=== PATIENT | male | born 1995 | race Caucasian/White ===

== ENCOUNTER 2017-04-13 00:04 | Emergency (ER) | END 2017-04-13 01:31 | disposition home or self-care (01) | DX: R10.13 Epigastric pain (principal) ==

== ENCOUNTER 2017-12-01 14:52 | Emergency (ER) | END 2017-12-01 18:05 | disposition left against medical advice (07) ==

== ENCOUNTER 2017-12-03 02:27 | Emergency (ER) | END 2017-12-03 03:14 | disposition home or self-care (01) ==

== ENCOUNTER 2018-06-12 16:18 | Emergency (ER) | END 2018-06-12 18:18 | disposition home or self-care (01) ==

== ENCOUNTER → 2019-04-23 | Emergency (ER) | payer SELFPAY ==
[~2019-04-23] VITALS: Ht 172.7 cm; Wt 79.0 kg
[~2019-04-23] MED LIST: ACET1TAB40 PO; CEPH-443 PO; ERYT1OIN6 LEFT EYE; IBUP-1542 PO; OMEP20CA16 PO; RANI150T35 PO; SUCR1TAB56 PO
[2019-04-23 07:53] VITALS: BP 111/72; PULSE 79; RESP 17; Ht 172.7 cm; Wt 79.0 kg
--- NOTE | 2019-04-23 10:04 | ERD ---
ER Documentation Chief Complaint Chief Complaint PROBLEM SWALLOWING, PT STATES FOOD FEELS "STUCK" HPI This is a 23-year-old male presents to the ED complaining of intermittent sensation of food feeling stuck in his mid substernal region for the past several months. He was seen at [facility] for this 1 week ago, diagnosed with gastric reflux disease and discharged home with omeprazole. Patient states his symptoms have since been improving but came here today for further evaluation. He states he currently is symptomatic, he denies any current abdominal pain, chest pain, shortness of breath, burning sensation, difficulty breathing, hematemesis, choking or any other symptoms. He he states he usually gets this foreign body sensation after eating. He states sensation starts at his mid substernal region and radiates up towards his throat that is associated with hoarseness. Again, patient is asymptomatic here. ROS All systems reviewed and are negative except as per history of present illness. Medications Home Meds Active Scripts Erythromycin Base (Erythromycin) 1 Gm Oint...g., 1 APPLIC LEFT EYE QID for 7 Days Prov:FREDDIE ROSE MD 06/12/18 Acetaminophen with Codeine (Acetaminophen-Cod #3 Tablet) 1 Each Tablet, 1 TAB PO Q6H PRN for PAIN, #7 TAB Prov:FREDDIE ROSE MD 06/12/18 Ibuprofen* (Motrin*) 600 Mg Tab, 600 MG PO Q6H PRN for PAIN AND OR ELEVATED TEMP, #30 TAB Prov:MAO VARGAS NP 12/03/17 Cephalexin* (Keflex*) 500 Mg Capsule, 500 MG PO QID for 10 Days, CAP Prov:MAO VARGAS NP 12/03/17 Sucralfate* (Carafate*) 1 Gm Tab, 1 GM PO QID for 7 Days, TAB Prov:RADU KIDD 04/13/17 Omeprazole* (Omeprazole*) 20 Mg Capsule.dr, 20 MG PO BID, #20 Prov:RADU KIDD 04/13/17 Ranitidine Hcl* (Zantac*) 150 Mg Tablet, 150 MG PO BID PRN for gerd, #30 TAB Prov:RADU KIDD 05/11/15 Reported Medications [None] No Conflict Check 5/22/11 Allergies Allergies: Coded Allergies: No Known Drug Allergy (Verified Allergy, Mild, 01/27/11) PMhx/Soc Medical and Surgical Hx: pt denies Surgical Hx History of Surgery: No Anesthesia Reaction: No Hx Neurological Disorder: No Hx Respiratory Disorders: No Hx Cardiac Disorders: No Hx Psychiatric Problems: No Hx Miscellaneous Medical Probl: Yes (gerd) Hx Alcohol Use: Yes Hx Substance Use: No Hx Tobacco Use: No Smoking Status: Never smoker Physical Exam Vitals Vital Signs Date Temp Pulse Resp B/P (MAP) Pulse Ox O2 O2 Flow FiO2 Time Delivery Rate 04/23/19 96.8 79 17 111/72 100 07:53 (85) Physical Exam Const: No acute distress Head: Atraumatic Eyes: Normal Conjunctiva ENT: Normal External Ears, Nose and Mouth. No FB visualized in the posterior oropharynx. Neck: Full range of motion. No meningismus. Resp: Clear to auscultation bilaterally Cardio: Regular rate and rhythm, no murmurs Abd: Soft, non tender, non distended. Normal bowel sounds Skin: No petechiae or rashes Back: No midline or flank tenderness Ext: No cyanosis, or edema Neur: Awake and alert Psych: Normal Mood and Affect Procedures/MDM MEDICAL DECISION MAKIN-year-old male recently diagnosed with GERD presents with sensation of food stuck in his throat intermittently over the past several months. Patient is asymptomatic on my evaluation and as a benign abdomen on physical exam. No e/o FB. He is nontoxic appearing, no hypoxia or respiratory distress. Discussed at length with patient that symptoms are common to those w/ reflux disease, patient was reassured. Patient would likely most benefit from outpatient endoscopy for his continued symptoms. He is already taking omeprazole, I encouraged him to continue w/ this, change his diet and follow up w/ GI at [facility] for outpati ent endoscopy. He is otherwise hemodynamically stable, no e/o upper or lower GI bleeding. I offered labs and treatment here but he deferred. Strict return precautions were discussed. PRESCRIPTIONS: None, patient has omeprazole at home. SPECIALIST FOLLOW UP RECOMMENDED: GI specialist at [facility]. Departure Diagnosis: Primary Impression: GERD (gastroesophageal reflux disease) Esophagitis presence: esophagitis presence not specified Qualified Codes: K21.9 - Gastro-esophageal reflux disease without esophagitis Condition: Stable Patient Instructions: Gerd (Adult) Referrals: COMM[facility]ITY CLIN[facility] YOU HAVE RECEIVED A MEDICAL SCREENING EXAM AND THE RESULTS INDICATE THAT YOU DO NOT HAVE A CONDITION THAT REQUIRES URGENT TREATMENT IN THE EMERGENCY DEPARTMENT. FURTHER EVALUATION AND TREATMENT OF YOUR CONDITION CAN WAIT UNTIL YOU ARE SEEN IN YOUR DOCTORS OFFICE WITHIN THE NEXT 1-2 DAYS. IT IS YOUR RESPONSIBILITY TO MAKE AN APPOINTMENT FOR FOLOW-UP CARE. IF YOU HAVE A PRIMARY DOCTOR --you should call your primary doctor and schedule an appointment IF YOU DO NOT HAVE A PRIMARY DOCTOR YOU CAN CALL OUR PHYSICIAN REFERRAL HOTLINE AT IF YOU CAN NOT AFFORD TO SEE A PHYSICIAN YOU CAN CHOSE FROM THE FOLLOWING [facility] [address] [facility] [address] [facility] [facility] [address] [facility] [address] [facility]. [facility] [address] [facility]. [facility] [address] [facility]. [facility] YOU HAVE RECEIVED A MEDICAL SCREENING EXAM AND THE RESULTS INDICATE THAT YOU DO NOT HAVE A CONDITION THAT REQUIRES URGENT TREATMENT IN THE EMERGENCY DEPARTMENT. FURTHER EVALUATION AND TREATMENT OF YOUR CONDITION CAN WAIT UNTIL YOU ARE SEEN IN YOUR DOCTORS OFFICE WITHIN THE NEXT 1-2 DAYS. IT IS YOUR RESPONSIBILITY TO MAKE AN APPOINTMENT FOR FOLOW-UP CARE. IF YOU HAVE A PRIMARY DOCTOR --you should call your primary doctor and schedule and appointment IF YOU DO NOT HAVE A PRIMARY DOCTOR YOU CAN CALL OUR PHYSICIAN REFERRAL HOTLINE AT . IF YOU CAN NOT AFFORD TO SEE A PHYSICIAN YOU CAN CHOSE FROM THE FOLLOWING [facility] INSTITUTIONS[facility] [address] [place] [address] [facility] [address] [place] [address] [facility] + [facility] [address] [place] [address] Additional Instructions: You must follow-up at all of you for an endoscopy for evaluation of your reflux disease. Continue taking the omeprazole for your reflux disease, avoid eating anything greasy, spicy, alcoholic as this can worsen your symptoms. Return here for any abdominal bloating, vomiting blood, choking or any other symptoms. DILAN CHAO PA-C Apr 23, 2019 10:04
== END | disposition home or self-care (01) ==
LOC: FTE 07:49
DX: K21.9 Gastro-esophageal reflux disease without esophagitis (principal)
CPT/HCPCS: 99282